=== PATIENT | male | born 1950 ===

== ENCOUNTER → 2019-06-12 10:52 | Outpatient (BNVA) | payer MEDICARE, SELFPAY | PROVIDERS: Referring Provider Family Medicine; Visit Provider Nurse Practitioner Gerontology | DX: N40.1 Benign prostatic hyperplasia with lower urinary tract symptoms (principal); N13.8 Other obstructive and reflux uropathy; R97.20 Elevated prostate specific antigen [PSA] | CPT/HCPCS: 99204 ==

== ENCOUNTER 2019-06-29 00:59 | Outpatient (CLI) | payer MEDICARE, SELFPAY ==
--- NOTE | 2019-06-29 08:35 | PROST_PTH ---
PATIENT: TONA DELGADO LOC: [facility] U#:[id number] AGE/SX: 69/M ROOM: RE06/29/[address]: Sabas Perez MD : [id number] BED: DIS: 06/29/2019 SPEC #: [id number] RECD: 06/29/19 11:37 STATUS: MANAV CH #: [id number] JOEL: 06/29/19 08:[address]: Sabas Perez DEPT: Surgical Specimen RECD BY: Amber Briones ENTERED: 06/29/19 11:39 SP TYPE: PROST OTHR DR: Mick Bunn Tissues: 1 - PROSTATE NEEDLE BIOPSY 2 - PROSTATE NEEDLE BIOPSY 3 - PROSTATE NEEDLE BIOPSY 4 - PROSTATE NEEDLE BIOPSY 5 - PROSTATE NEEDLE BIOPSY 6 - PROSTATE NEEDLE BIOPSY 7 - PROSTATE NEEDLE BIOPSY 8 - PROSTATE NEEDLE BIOPSY 9 - PROSTATE NEEDLE BIOPSY 10 - PROSTATE NEEDLE BIOPSY 11 - PROSTATE NEEDLE BIOPSY 12 - PROSTATE NEEDLE BIOPSY Procedures: GROSS AND MICRO LEVEL 4 IMMUNOPEROXIDASE STAIN Comments: [id number]
--- NOTE | 2019-06-29 08:45 | DI.US_ITS ---
SYMPTOM/DIAGNOSIS: ELEVATED PSA R97.20, N 40.1 BENIGN HYPERPLASIA WITH UTI N13.8 OBSTRUCTIVE UROPATHY ULTRASOUND GUIDANCE FOR PROSTATE BIOPSY: 06/29 Ultrasound guidance was provided for prostate biopsy performed by Dr. Perez. Please see Dr. Perez's procedure note. Prostatic volume estimated at 71 cc.
--- NOTE | 2019-06-29 10:37 | ROE_ITS ---
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 PROCEDURE Transrectal ultrasound-guided biopsy of the prostate. SURGEON Sabas Perez M.D. ANESTHESIA Local. COMPLICATIONS None. ESTIMATED BLOOD LOSS Minimal. HISTORY This is a 69-year-old gentleman who has a past history of an elevated PSA. He had undergone a prostat e biopsy back in 2006. 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 His PSA is currently 9 ng/ml. His digital rectal exam is unremarkable in terms of no prostate nodules being palpable. He presents for repeat prostate biopsy. PROCEDURE DESCRIPTION The patient was brought to the radiology suite on 06/29/2019. He was placed in the left lateral positi on. Transrectal imaging of the prostate was then performed using variable Hertz transducer. The prost ate was imaged in transverse and longitudinal planes. The prostatitic volume was calculated at 72 cc. The transition zone appeared enlarged with multiple cystic areas present. The peripheral zone showed no specific hypoechoic areas. The periprostatic nerve block was performed. We then utilized ultrasound guidance to perform laterall y directed biopsies of the prostate. A total of 12 biopsies were taken. They were labeled and sent to Pathology for permanent section. The patient tolerated this procedure well. There were no complications. His followup will depend on h is pathology results. CC: Luis Bunn M.D.
== END 2019-06-29 01:19 ==
PROVIDERS: PCP Family Medicine; Visit Provider Urology
DX: N13.8 Other obstructive and reflux uropathy (principal); N40.1 Benign prostatic hyperplasia with lower urinary tract symptoms; R97.20 Elevated prostate specific antigen [PSA]; N42.31 Prostatic intraepithelial neoplasia
CPT/HCPCS: 55700; 76942; 76872; 88305; 88361

== ENCOUNTER → 2019-07-25 14:50 | Outpatient (BNVA) | payer MEDICARE, SELFPAY | PROVIDERS: PCP Family Medicine; Visit Provider Urology | DX: N42.32 Atypical small acinar proliferation of prostate (principal); R97.20 Elevated prostate specific antigen [PSA]; N42.31 Prostatic intraepithelial neoplasia; I10 Essential (primary) hypertension | CPT/HCPCS: 99213 ==

== ENCOUNTER → 2020-08-27 15:19 | Outpatient (BNVA) | payer MEDICARE, SELFPAY | PROVIDERS: PCP Family Medicine; Referring Provider Family Medicine; Visit Provider Urology | DX: N42.32 Atypical small acinar proliferation of prostate (principal); R97.20 Elevated prostate specific antigen [PSA] | CPT/HCPCS: 99213 ==

== ENCOUNTER 2020-08-27 16:56 | Outpatient (REF) | payer MEDICARE, SELFPAY ==
[2020-08-29 12:57] LABS: Free PSA/PSA Ratio 0.17 ratio
== END 2020-08-27 17:16 ==
LOC: LBN 16:56
PROVIDERS: PCP Family Medicine; Visit Provider Urology
DX: R97.20 Elevated prostate specific antigen [PSA] (principal)
CPT/HCPCS: 84154